=== PATIENT | male | born 1965 ===

== ENCOUNTER 2018-09-13 17:24 | Emergency (ER) | payer OTHER ==
--- NOTE | 2018-09-13 17:52 | Emergency Department Report ---
Blank Doc - Documentation Documentation: This is a 53-year-old male that presents with lower back pain. denies any inj uries. Denies any urinary symptoms. This initial assessment/diagnostic orders/clinical plan/treatment(s) is/are subject to change based on patient's health status, clinical progression and re-assessment by fellow clinical providers in the ED. Further treatment and workup at subsequent clinical providers discretion. Patient/guardians urged not to elope from the ED as their condition may be serious if not clinically assessed and managed. Initial orders include: 1- Patient sent to [facility] for further evaluation and treatment.
[2018-09-13 17:53] VITALS: BP 142/83
[2018-09-13] MEDS ORDERED: TORADOL IM ONE (20:28)
--- NOTE | 2018-09-13 20:58 | Emergency Department Report ---
ED Back Pain/Injury HPI - General Chief Complaint: Back Pain/Injury Stated Complaint: LOWER BACK PAIN Time Seen by Provider: 09/13/18 17:50 Source: patient Limitations: No Limitations - History of Present Illness Initial Comments: This is a 53-year-old male that presents with right sided lower back pain 5/10 aching radiating to RLE , denies fall injury or trauma, there is no dysuira frequency or urgency, no numbness no tingling no paralysis no loss or decrease in bowel or bladder function pt remains ambulatory to baseline per patient, pain is exacerbated by bending twisting , prolonged standing or sitting, there is no fever no chills Complaint: back pain Onset/Timin -: week(s) Similar Symptoms Previously: Yes Place: home Radiation: right leg Severity: moderate Severity scale (0 -10): 4 Quality: burning, aching Consistency: constant Improves With: none Worsens With: movement, sitting upright, walking Context: unknown Associated Symptoms: denies: weakness, difficulty walking, difficulty urinating, incontinence, constipation, headaches - Related Data Previous Rx's Medication Instructions Recorded Last Taken Type Cyclobenzaprine [Flexeril] 10 mg PO TID PRN #30 tablet 09/14/18 Unknown Rx Menthol/Camphor [[place] Fluker 1 applicatio TP QID PRN #1 tube 09/14/18 Unknown Rx Ointment] Naproxen [Naprosyn] 500 mg PO BID #30 tablet 09/14/18 Unknown Rx Allergies Allergy/AdvReac Type Severity Reaction Status Date / Time No Known Allergies Allergy Unverified 09/13/18 17:29 ED Review of Systems ROS: Stated complaint: LOWER BACK PAIN Other details as noted in HPI Constitutional: denies: chills, fever Eyes: denies: eye pain, eye discharge, vision change ENT: denies: ear pain, throat pain Respiratory: denies: cough, shortness of breath, wheezing Cardiovascular: denies: chest pain, palpitations Endocrine: no symptoms reported Gastrointestinal: denies: abdominal pain, nausea, diarrhea Genitourinary: denies: urgency, dysuria Musculoskeletal: back pain, arthralgia, myalgia Skin: denies: rash, lesions Neurological: denies: headache, weakness, paresthesias Psychiatric: denies: anxiety, depression Hematological/Lymphatic: denies: easy bleeding, easy bruising ED Past Medical Hx - Past Medical History Previous Medical History?: No - Surgical History Past Surgical History?: No - Social History Smoking Status: Never Smoker Substance Use Type: None - Medications Home Medications: Home Medications Medication Instructions Recorded Confirmed Last Taken Type Cyclobenzaprine [Flexeril] 10 mg PO TID PRN #30 tablet 09/14/18 Unknown Rx Menthol/Camphor [[place] Fluker 1 applicatio TP QID PRN #1 tube 09/14/18 Unknown Rx Ointment] Naproxen [Naprosyn] 500 mg PO BID #30 tablet 09/14/18 Unknown Rx ED Physical Exam - General Limitations: No Limitations General appearance: alert, in no apparent distress - Head Head exam: Present: atraumatic, normocephalic - Eye Eye exam: Present: normal appearance, PERRL, EOMI Pupils: Present: normal accommodation - ENT ENT exam: Present: mucous membranes moist - Neck Neck exam: Present: normal inspection, full ROM. Absent: tenderness, meningismus, thyromegaly - Respiratory Respiratory exam: Present: normal lung sounds bilaterally. Absent: respiratory distress, wheezes, stridor, chest wall tenderness - Cardiovascular Cardiovascular Exam: Present: regular rate, normal rhythm, normal heart sounds. Absent: systolic murmur, diastolic murmur, rubs, gallop - GI/Abdominal GI/Abdominal exam: Present: soft, normal bowel sounds. Absent: distended, tenderness, guarding, rebound, rigid, bruit, hernia - Rectal Rectal exam: Present: deferred - Extremities Exam Extremities exam: Present: normal inspection, full ROM, normal capillary refill. Absent: tenderness, pedal edema, joint swelling, calf tenderness - Back Exam Back exam: Present: normal inspection, full ROM, tenderness, CVA tenderness (R), muscle spasm, paraspinal tenderness (no posterior vertebral point tenderness mild paraspinus muscle tenderness to deep palpation rom inact no deformity no swelling or ecchymosis ). Absent: CVA tenderness (L), vertebral tenderness, rash noted - Neurological Exam Neurological exam: Present: alert, oriented X3, CN II-XII intact, normal gait, reflexes normal - Expanded Neurological Exam Expanded Patient oriented to: Present: person, place, time Speech: Present: fluid speech Cranial nerves: EOM's Intact: Normal, Gag Reflex: Normal, Tongue Deviation: Normal, Nystagmus: Normal, Facial Sensation: Normal Cerebellar function: Finger to Nose: Normal, Heel to López: Normal, Romberg: Normal Upper motor neuron: Hubert Neglect: Normal, Pronator Drift: Normal, Sensory Extinction: Normal Motor strength exam: RUE: 5, LUE: 5, RLE: 5, LLE: 5 Best Eye Response ([place]): (4) open spontaneously Best Motor Response ([place]): (6) obeys commands Best Verbal Response ([place]): (5) oriented [place] Total: 15 - Psychiatric Psychiatric exam: Present: normal affect, normal mood - Skin Skin exam: Present: warm, dry, intact, normal color. Absent: rash ED Course Vital Signs 09/13/18 17:51 Temperature 98.2 F Pulse Rate 62 Respiratory 18 Rate Blood Pressure 142/83 O2 Sat by Pulse 98 Oximetry ED Medical Decision Making - Radiology Data Radiology results: image reviewed no fracture no soft tissue abnormality - Medical Decision Making xray neg for fracture no soft tissue abnormality, pain improved, plan: nsaids , steroid, muscle relaxant, analgesic balm moist heat therapy follow up with nurse unit manager in 2-3 days. Critical care attestation.: If time is entered above; I have spent that time in minutes in the direct care of this critically ill patient, excluding procedure time. ED Disposition Clinical Impression: Low back strain Qualifiers: Encounter type: initial encounter Qualified Code(s): S39.012A - Strain of muscle, fascia and tendon of lower back, initial encounter Disposition: TO HOME OR SELFCARE Is pt being admited?: No Does the pt Need Aspirin: No Condition: Stable Instructions: Low Back Strain (ED), Core Strengthening Exercises (GEN) Prescriptions: Cyclobenzaprine [Flexeril] 10 mg PO TID PRN #30 tablet PRN Reason: Muscle Spasm Naproxen [Naprosyn] 500 mg PO BID #30 tablet Menthol/Camphor [[place] Fluker Ointment] 1 applicatio TP QID PRN #1 tube PRN Reason: pain Referrals: GREG BUTCHER MD [Staff Physician] - 3-5 Days Forms: Work/School Release Form(ED) Time of Disposition: 00:14
[2018-09-13] MEDS ORDERED: NORCO 5/325 PO ONE (23:10)
[2018-09-13] MEDS ORDERED: DECADRON IV ONE (23:11)
[2018-09-13] MEDS ORDERED: TYLENOL ONE (23:12)
[2018-09-13] MEDS ORDERED: DECADRON ONE (23:13)
[2018-09-13] MEDS ORDERED: NORCO 5/325 ONE (23:13)
[2018-09-13] MEDS ORDERED: TYLENOL PO ONE (23:14)
--- NOTE | 2018-09-14 01:46 | XRay Report ---
LUMBAR SPINE, 2 VIEWS, 09/13/2018 INDICATION / CLINICAL INFORMATION: back pain. COMPARISON: None available. FINDINGS: Mild scoliosis, convex to the left. There is mild multilevel degenerative disc disease, involving all levels. Mild to moderate spondylitic changes are seen diffusely throughout the lumbar spine as well. Vertebral body heights are maintained. No evidence for compression fracture. IMPRESSION: 1. Mild multilevel degenerative disc disease with mild to moderate diffuse spondylytic change. 2. Mild scoliosis. Signer Name: Page Celestin MD Signed: 09/14/2018 12:42 AM Workstation Name: [id number]
== END 2018-09-14 00:36 | disposition home or self-care (01) ==
LOC: ED 17:24
DX: S39.012A Strain of muscle, fascia and tendon of lower back, initial encounter (principal); V89.2XXA Person injured in unspecified motor-vehicle accident, traffic, initial encounter; Y93.89 Activity, other specified; Y92.410 Unspecified street and highway as the place of occurrence of the external cause; Y99.8 Other external cause status
CPT/HCPCS: 72100; 96372; 96374; 99283; J1100; J1885